=== PATIENT | male | born 1980 | race Caucasian/White ===

== ENCOUNTER 2021-10-08 17:34 | Outpatient (CLI) | payer SELFPAY ==
[2021-10-08 21:25] LABS: Albumin* 4.8 g/dL (3.3-5.0); Chloride* 103 mmol/L (96-114); Potassium* 3.8 mmol/L (3.6-5.1); Sodium* 136 mmol/L (135-149)
[2021-10-08 21:28] LABS: Alanine Aminotransferase* 96 U/L (4-50); Alkaline Phosphatase* 100 U/L (40-150); Aspartate Amino Transferase* 54 U/L (12-35); Bilirubin Total* 0.8 mg/dL (0.1-1.5); Blood Urea Nitrogen* 11 mg/dL (5-24); Calcium* 9.8 mg/dL (8.4-10.6); Carbon Dioxide* 25 mmol/L (20-32); Creatinine* 0.9 mg/dL (0.5-1.5); Estimated Glomerular Filt Rate 111 ml/min; Glucose* 98 mg/dL (60-115); Lipase* 99 U/L (23-300); Total Protein* 7.9 g/dL (6.0-8.3)
== END 2021-10-08 17:35 | disposition home or self-care (01) ==
PROVIDERS: Visit Provider Family Medicine
DX: R10.31 Right lower quadrant pain (principal); R19.7 Diarrhea, unspecified
CPT/HCPCS: 80053; 83690

== ENCOUNTER 2023-05-15 09:10 | Outpatient (CLI) | payer BC, SELFPAY | END 2023-05-15 09:11 | disposition home or self-care (01) | PROVIDERS: PCP Family Medicine; Visit Provider Family Medicine | DX: Z13.228 Encounter for screening for other metabolic disorders (principal); E78.2 Mixed hyperlipidemia; R68.82 Decreased libido | CPT/HCPCS: 80053; 80061; 84270; 84402; 84403 ==

== ENCOUNTER 2024-02-16 16:03 | Outpatient (CLI) | payer BC, SELFPAY | END 2024-02-16 16:04 | disposition home or self-care (01) | LOC: LKVREF 16:04 | PROVIDERS: PCP Family Medicine; Visit Provider Family Medicine | DX: E78.00 Pure hypercholesterolemia, unspecified (principal) | CPT/HCPCS: 80048; 80061; 84270; 84402; 84403 ==

== ENCOUNTER 2024-03-01 09:55 | Day surgery (SDC) | payer BC, SELFPAY ==
[2024-03-01] VITALS (11 sets, daily range): BP systolic 129–155; BP diastolic 74–104; PULSE 68–97; RESP 12–16; TEMP 36.4–36.8; O2SAT 96–99; BMI 27.0
[2024-03-01] MEDS: SODIUM CHLORIDE 0.9 % (FLUSH) 10 ML SYRINGE IVF (10:36)
[2024-03-01] MEDS: 0.9 % SODIUM CHLORIDE 500 ML 500 ML 100 ML IV ×2 (10:37→12:23)
--- NOTE | 2024-03-01 11:14 | W.PM.H&PU ---
History & Physical Update History & Physical Update H&P Reviewed and patient assessed: No changes noted
--- NOTE | 2024-03-01 11:19 | PM.GSPRC ---
Operative Note Date of procedure: 03/01/24 Pre-op diagnosis: 1. Symptomatic small right inguinal hernia and small left inguinal hernia. 2. Small umbilical hernia. Post-op diagnosis: 1. Moderately sized right direct inguinal hernia. 2. Small left direct inguinal hernia. 3. Fat containing umbilical hernia. Type of Procedure: 1. Laparoscopic bilateral inguinal hernia repair with mesh. 2. Open umbilical hernia repair without mesh. Indications: 43-year-old male was seen in clinic for evaluation of right inguinal pain. Patient started to experience this pain several months prior to his presentation. He described the pain as sharp and lasting a short time and sometimes was dull and lasting longer than a day. The pain was usually worse with physical activity and heavy lifting and radiated to his right testicle. Patient has not noticed a right groin bulge but during his annual exam he was told he had a right inguinal hernia. Patient was having regular bowel movements, he did not notice any bulges on the left side. On clinical exam there was a small reducible umbilical hernia noted at the superior aspect of the umbilicus. Patient had tenderness with reducing this hernia. Patient had a small reducible right inguinal hernia. There was also small inguinal hernia palpated on the left side. Given patient's clinical history and his physical exam, laparoscopic bilateral inguinal hernia repair and open umbilical hernia repair were recommended. The procedure was were discussed in detail. The risks associated procedure including infection, bleeding, injury to preperitoneal organs, and hernia recurrence were all discussed with the patient, and he agreed to proceed. Procedure Description: After discussing the risks and benefits of the procedure, the patient signed informed consent.? The operative site was marked and the patient was brought to the operating room and placed on the operating table in supine position.? Care was taken to pad the patient's pressure points.?? The patient was then intubated by anesthesia.?? The operative site was then prepped and draped in the usual sterile fashion.? A time-out was then performed. An infraumbilical skin incision was made with a scalpel and subcutaneous tissues were dissected with electrocautery. Anterior sheath was incised with electrocautery and rectus muscle was retracted laterally. A 12 mm spacemaker dissector system was introduced into the incision and advanced over the posterior sheath. Preperitoneal space was dissected with manually insufflating air under direct visualization. Once the tissues were dissected, the balloon was deflated and removed.? A laparoscopic balloon was placed into preperitoneal space and balloon was inflated. Preperitoneal space was insufflated with air. No bleeding was identified upon examination of preperitoneal space. We then placed two 5 mm ports suprapubically under direct visualization. ? The preperitoneal tissues were bluntly dissected with graspers.? The pubic bone was identified and? cleared from preperitoneal tissue.? I first started on the right side.? Inferior epigastrics on the right?side were retracted towards the abdominal wall.? Balloon did not dissect the tissues of this right preperitoneal space very well. I bluntly dissected right preperitoneal space with graspers. Hemostasis was achieved with cautery.? Spermatic cord? was identified and dissected circumferentially.? Scar tissue was noted in the right preperitoneal space. This was done bluntly. The moderately sized direct hernia space was identified.?? The peritoneum was noted and peritoneum was dissected bluntly from the spermatic cord. There was no evidence of indirect inguinal hernia on the right.?? When adequate space was developed for mesh placement, we then turned our attention to the left side. The left-sided preperitoneal space was similarly dissected bluntly. The left spermatic cord was identified and dissected circumferentially bluntly. The peritoneal edge on the left was also identified and dissected away from the spermatic cord. There was no evidence of left indirect inguinal hernia. Small direct hernia space was identified and no preperitoneal structures were incarcerated in this hernia space. When adequate space was developed for mesh placement, a left-sided Parietex? mesh was used and positioned around the spermatic cord. The mesh was tacked medially and laterally with?tacks.? Similarly, right-sided per right ax mesh was placed in position around the right spermatic cord. This was tacked medially and laterally with minimal tacks. Additional local anesthetic was injected directly into pre-peritoneal space. ? The space was deflated under direct visualization and mesh appeared to be still lying in a good position. The ports were then removed. Anterior sheath was then closed with a running 0-0 vicryl suture. I then proceeded with an open umbilical hernia repair. The umbilicus was mobilized off the anterior fascia with cautery. Preperitoneal fat was incarcerated through the anterior fascial defect. This was dissected away from the fascial defect and reduced into preperitoneal space. The fascial defect was approximately 8 mm and had strong surrounding fascia. I elected to repair this fascial defect with 0-0 Nurolon sutures. No mesh was placed. The umbilicus was then tacked to the fascia with interrupted 3-0 Vicryl sutures. The dermis was reapproximated with interrupted 3-0 Vicryl sutures. The skin of all incisions was closed with 4-0 Monocryl stitch. Steri strips and sterile dressings were placed over the umbilicus were applied over the laparoscopic?incisions. ? All counts were correct at the end of the case. Patient tolerated the procedure well and was transferred to PACU without any complications. Findings: Moderately sized direct right inguinal hernia, small direct left inguinal hernia, small fascial defect at the umbilicus repaired without mesh. Anesthesia: GETA Surgeon: Khadra Rueda MD Estimated blood loss (mL): 5 Condition: stable Disposition: PACU
[2024-03-01] MEDS: CEFAZOLIN 2 GM INJ IVP (11:33)
[2024-03-01] MEDS: LIDOCAINE 1%-EPI 1:100,000 20 ML INFILTRATI (13:00)
[2024-03-01] MEDS: BUPIVACAINE 0.25% 30 ML INJECTION (13:00)
--- NOTE | 2024-03-01 13:23 | W.ANESCHARGE ---
Anesthesia Charges Start Date/Time Anesthesia Start Date: 03/01/24 Anesthesia Start Time: 11:21 Stop Date/Time Anesthesia Stop Date: 03/01/24 Anesthesia Stop Time: 13:22
[2024-03-01] MEDS: HYDROCODONE-ACETAMIN 5-325 MG 1 TAB PO ×2 (13:55→14:19)
--- NOTE | 2024-03-01 14:35 | P.IMCN_ITS ---
Date of Consult Patient: [facility] Patient Consult date: 03/01/24 Requesting Physician: Other (Anesthesia) Primary Care Provider: Kofi Diaz MD Consult Narrative Reason for consult: Postoperative L sided chest discomfort Narrative: Kieran Guthrie is a 43 year old male who presented to the hospital for an elevated laparoscopic B inguinal hernia repair + open umbilical hernia repair with Dr. Rueda of General Surgery. There were no operative or anesthetic complications during procedure. Postoperatively, patient noted some discomfort in L shoulder, L chest. Not necessarily worse with movement. No difficulty breathing. IV is in L hand and has noted discomfort in that region since placement. Patient has no history of heart disease, high blood pressure, or blood clots. No concerning findings on preoperative exam, labs also reviewed from that visit and within normal limits. LDL was 145 in May 2023. No family history of blood clots or premature coronary disease. EKG reviewed; sinus rhythm with no concerning abnormalities. POC troponin 0.00 Review of Systems Status of ROS: Reports: 10 or more systems reviewed and unremarkable except as noted in History and below [facility] Medical History (Updated 03/01/24 @ 16:17 by Codie Cantu MD) Hypercholesteremia ?E78.00 - Pure hypercholesterolemia, unspecified (ICD-10) Simple laceration of face ?S01.81XA - Laceration without foreign body of other part of head, initial encounter (ICD-10) Acute conjunctivitis of left eye ?H10.32 - Unspecified acute conjunctivitis, left eye (ICD-10) Acute maxillary sinusitis ?J01.00 - Acute maxillary sinusitis, unspecified (ICD-10) Social History Smoking Status: Never smoker Do you use any of these nicotine containing products: None How often do you have a drink containing alcohol: never How often do you have six or more drinks on one occasion: Never AUDIT-C Alcohol total score: 0 Non-prescribed substance use: other Non-prescribed substance use details: gummies Meds Home Medications and Allergies Allergies Allergy/AdvReac Type Severity Reaction Status Date / Time Sulfa (Sulfonamide Allergy Unknown Verified 03/01/24 10:04 Antibiotics) Exam Narrative: Exam Narrative: Vital signs reviewed: 98-99% on room air, BP 140s/80s, pulse 60-70 GEN: Alert and oriented, answering questions appropriately HEENT: EOMIs bilaterally, no scleral icterus CV: RRR, No concerning murmurs, no carotid bruits R: LCTA bilaterally without concerning wheezing, air movement adequate Ext: wwp, no concerning edema, negative Homans sign MS: Full range of motion bilateral upper extremities. Skin: No concerning skin lesions or rashes on exposed skin Neuro: Nonfocal Psych: Appropriate Const: Vital Signs, click to edit/add: Vital Signs - 24 hr 03/01/24 10:33 03/01/24 13:17 03/01/24 13:22 Temperature 98.3 F 97.6 F Pulse Rate 74 94 97 Respiratory Rate 16 16 12 Blood Pressure 130/90 H 155/99 H 132/74 Pulse Oximetry 96 99 98 Oxygen Delivery Me thod Room Air Room Air Room Air 03/01/24 13:27 03/01/24 13:34 03/01/24 13:40 Temperature Pulse Rate 95 88 89 Respiratory Rate 12 12 16 Blood Pressure 148/88 H 153/98 H 129/97 H Pulse Oximetry 99 99 99 Oxygen Delivery Me thod Room Air Room Air Room Air 03/01/24 13:46 03/01/24 14:00 03/01/24 14:30 Temperature 98.0 F Pulse Rate 77 71 71 Respiratory Rate 16 16 16 Blood Pressure 146/104 H 138/100 H 144/84 H Pulse Oximetry 99 99 98 Oxygen Delivery Me thod Room Air Room Air Room Air Assessment and Plan Assessment and plan (1) Left shoulder pain: Problem comment: - reassuring EKG, negative POC troponin - heart score 0-1 (elevated LDL) - symptoms resolved soon after consult, was able to sit up and move without pain - discharge home with return precautions Status: Acute Plan - routine postop cares, reviewed red flag symptoms and return precautions - updated at bedside, questions answered
--- NOTE | 2024-03-01 15:11 | SUR.PHASEII ---
Patient c/o chest pain radiating down in left arm to his elbow around 1415. Also c/o abdominal pain 8/10 at that time. Ron Azul CRNA notified and EKG done. Ron notified Dr. Cantu, hospitalist who looked at the EKG and came to assess the patient. POC trop ordered and drawn. While waiting the the lab to run, patient's chest pain began to decrease and then eventually went away completely. Trop was negative and Dr. Cantu gave the OK for the patient to be discharged to home.
== END 2024-03-01 15:19 | disposition home or self-care (01) ==
PROVIDERS: Family Medicine; PCP Family Medicine; Visit Provider Surgery
PROC: (CPT 49650; principal; 2024-03-01 11:15)
DX: K40.20 Bilateral inguinal hernia, without obstruction or gangrene, not specified as recurrent (principal); K42.9 Umbilical hernia without obstruction or gangrene; R07.9 Chest pain, unspecified; M25.512 Pain in left shoulder
CPT/HCPCS: 49650; 49591; 00830; 84484; 93005; A9270; C1781; J0330; J0665; J0690; J2704; J3010; J3490; J7030